=== PATIENT | female | born 1960 | race Caucasian/White ===

== ENCOUNTER 2018-05-12 08:59 | Day surgery (SDC) | payer BC ==
--- NOTE | 2018-04-26 09:14 | HP ---
AMENDED REPORT NOW INCLUDES COSIGNER DESIGNATION PREOPERATIVE HISTORY AND PHYSICAL: DATE OF SURGERY/ADMISSION: 05/12/18 DATE OF OFFICE VISIT/ENCOUNTER: 04/12/18 ATTENDING SURGEON: Jerrica Vásquez MD.* (DICTATED BY WALT NINO) PROCEDURE: Left wrist carpal tunnel release, ulnar nerve decompression at the elbow. CHIEF COMPLAINT: Numbness and tingling, left hand. HISTORY OF PRESENT ILLNESS: This is a 57-year-old female who complains of bilateral numbness and tingling in her hands, left is worse than the right. She has had this off and on for many years, but it has become worse in the past 3 to 4 months. She says her left thumb is numb all the time, and she also experiences some tingling in her pinky. Symptoms bother her at night and also during the day. 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 She denies any specific injury. She recently had a nerve conduction study with the results of moderate carpal tunnel syndrome and incipient ulnar nerve compression in the left elbow. She would like to proceed with surgical intervention for these problems. PAST MEDICAL HISTORY: 1. Mitral valve regurgitation. 2. Aortic valve regurgitation. 3. Asthma. 4. Hypertension. 5. Hypothyroidism. 6. Fibromyalgia. 7. Depression/anxiety. 8 Raynaud's disease. 9. Migraine headaches. PAST SURGICAL HISTORY: 1. Appendectomy. 2. x3. 3. Breast reduction x2. 4. Uterine ablation. 5. Open reduction and internal fixation, right ulna. CURRENT MEDICATIONS: 1. Albuterol sulfate 1 vial via nebulizer 4 times daily p.r.n. 2. Baclofen 10 mg 1/2 to 1 tab every 8 hours p.r.n. muscle spasms. 3. Calcium 600 mg daily. 4. Carbamazepine ER 200 mg twice a day. 5. Chlorthalidone 25 mg daily. 6. Combivent Respimat 200-100 mcg/ACT 1 puff 4 to 6 times daily p.r.n. 7. Coreg 25 mg twice daily. 8. Levothyroxine sodium 75 mcg daily. 9. Lyrica 100 mg 1 cap q.12 hours. 10. Manganese 15 mg daily. 11. Spironolactone 50 mg 1 tab twice a day. 12. Sumatriptan succinate 100 mg, use at onset of headache. 13. Symbicort 80-4.5 mcg/ACT 2 puffs twice a day. 14. Trazodone HCL 100 mg 1 tab daily. 15. Ventolin HFA inhaler 2 puffs 4 times a day p.r.n. 16. Vitamin D3 2000 units daily. 17. Zinc Chelated 50 mg 1 tab daily. ALLERGIES: MORPHINE causes hives. FAMILY MEDICAL HISTORY: Noncontributory. SOCIAL HISTORY: The patient is a nurse night supervisor at [employer]. She is a former smoker, she quit in 2002, but prior to that she report she smoked 4 cigarettes a day for 10 years. She denies recreational drug use. She drinks alcohol on occasion. REVIEW OF SYSTEMS: Negative for general, cephalic, cardiovascular, GI, , other musculoskeletal, integumentary, endocrine, neurologic and hematologic symptoms. Infectious Disease is negative for history of MRSA, hepatitis C and HIV. PHYSICAL EXAMINATION GENERAL: Well-developed, well-nourished 57-year-old female, in no acute distress. VITAL SIGNS: Height 5 feet 6 inches, weight 203 pounds. Blood pressure 118/82 , pulse rate 60. HEENT: Normocephalic, atraumatic. Pupils are equal, round and reactive to light and accommodation. Extraocular movements are intact. Throat is clear. NECK: Supple. No palpable lymph nodes. PULMONARY: Lungs are clear to auscultation bilaterally. No wheezes, rales or rhonchi. CARDIOVASCULAR: Regular rate and rhythm. S1, S2. No murmurs, rubs, or gallops. No edema. ABDOMEN: Positive bowel sounds. Soft, nontender. NEUROLOGICAL: Alert and oriented x3. Cranial nerves II through XII are intact. MUSCULOSKELETAL: On exam of her left upper extremity, no significant muscle wasting is noted in her left hand. There is some weakness with both finger adduction and thumb abduction. She has a positive Tinel sign at the median nerve as well as at the ulnar nerve at the elbow. Decreased sensation in her left thumb and fingers. IMPRESSION: Left carpal tunnel syndrome, and ulnar nerve compression at the elbow. PLAN: The patient is scheduled to undergo a left wrist carpal tunnel release, and a left ulnar nerve decompression at the elbow with Dr. Vásquez, on 05/12/18. She will return to the office 10 days postop for followup and suture removal. The patient has [place] at home from another prescriber and will plan on using Tylenol and ibuprofen [id number] for postoperative pain management. We will receive clearance prior to proceeding with surgical intervention from the patient's fence repairman, Dr. Zhang. WALT NINO [id number]/[facility] #: [id number] ALEX
[~2018-05-12 08:59] MED LIST: Buffered Lidocaine 0.9% SYRIN* 5 ML/SYR SYRINGE INTRADERM ONE; Famotidine IV* 10 MG/ML 2 ML (20 mg) IV ONE; ROPIVACAINE 5 MG/ML 30 ML BTL (0.5%) ONE
[2018-05-12] MEDS ORDERED: ceFAZolin 2 GM PREMIX in ORs 2 GM/50 ML BAG IVPB ONE (09:19)
[2018-05-12] MEDS ORDERED: Famotidine IV* 10 MG/ML 2 ML (20 mg) ONE (09:19)
[2018-05-12] MEDS ORDERED: fentaNYL* 50 MCG/ML 2 ML VIAL (100 MCG VIAL) ONE (10:15)
[2018-05-12] MEDS ORDERED: Midazolam* 1 MG/ML 5 ML VIAL (5 MG) ONE (10:15)
[2018-05-12] MEDS ORDERED: oxyCODONE/Acetamin 5/325 MG* TAB PO PRN (10:24)
[2018-05-12] MEDS ORDERED: Naloxone* 0.4 MG/ML 1 ML VIAL IV PRN (10:24)
[2018-05-12] MEDS ORDERED: DiMENhydriNATE IV* 50 MG/ML VIAL IV PUSH PRN (10:24)
[2018-05-12] MEDS ORDERED: Ondansetron INJ* 2 MG/ML VIAL ONE (10:26)
[2018-05-12] MEDS ORDERED: Propofol* 10 MG/ML 20 ML BTL IV PUSH ONE (10:26)
[2018-05-12] MEDS ORDERED: Dexamethasone IV* 4 MG/ML 1 ML (4 MG) ONE (10:26)
[2018-05-12] MEDS ORDERED: Ketorolac INJ* 30 MG/ML 1 ML VIAL ONE (10:26)
[2018-05-12] MEDS ORDERED: Lidocaine 2% PF * 5 ML VIAL ONE (10:26)
[2018-05-12] MEDS ORDERED: Lidocaine 1% INJ* 10 MG/ML 30 ML SDV ONE (10:29)
[2018-05-12] MEDS ORDERED: HYDROcodone/ACETAMIN 5-325 MG* 1 TAB ONE (12:12)
[2018-05-12 12:17] VITALS: BP 143/81
--- NOTE | 2018-05-13 03:03 | OP ---
DATE OF OPERATION: 05/12/18 - [facility] DATE OF : 62 SURGEON: Jerrica Vásquez MD ASSISTANT GM OF CONTENT & DELIVERY: WALT Andersen ANESTHESIA: General. PRE-OP DIAGNOSES: Carpal tunnel syndrome on the left and ulnar nerve compression at the left elbow. POST-OP DIAGNOSES: Carpal tunnel syndrome on the left and ulnar nerve compression at the left elbow. OPERATIVE PROCEDURE: Left carpal tunnel release and ulnar nerve decompression at the elbow, left. ESTIMATED BLOOD LOSS: Zero. TOURNIQUET TIME: About 30 minutes. INDICATIONS FOR PROCEDURE: La is a 57-year-old female with numbness and tingling in her left upper extremity. Nerve conduction study was consistent with ulnar nerve compression of the elbow and median nerve compression at the wrist. She presents for decompression of the ulnar nerve at the elbow and left carpal tunnel release. DESCRIPTION OF PROCEDURE: The patient was brought to the operating room, was given a general anesthetic and placed in the supine position on the operating table with the tourniquet around her left upper arm. The skin of her left upper extremity was prepped and draped in the usual sterile fashion. The upper extremity was exsanguinated and the tourniquet elevated to 250 mmHg. A longitudinal incision was made in the palm in line with the ring finger. We dissected sharply through the subcutaneous tissue down to the transverse carpal ligament. The ligament was divided sharply with a knife and then more proximally with the scissors. The nerve was dissected free from the surrounding tissues and there was an area of moderate compression at the mid portion of the ligament. The wound was irrigated and the skin edges were reapproximated with a 4-0 nylon suture. Next, a curvilinear incision was made, centered between the medial epicondyle and the tip of the olecranon process. We dissected through the subcutaneous tissue bluntly down to the ulnar nerve proximal to the cubital tunnel. The nerve was dissected out carefully proximally for several centimeters and then through the cubital tunnel and through the FCU fascia, both superficial and deep. The medial and brachial cutaneous nerve was preserved. The nerve was completely released and did not sublux with range of motion. The wound was irrigated and the subcutaneous tissue was closed with 3-0 Polysorb and the skin with skin gualberto. The wounds were dressed with Xeroform, 4x4, Webril, and an Sukumar wrap. The patient tolerated the procedure well, was brought to the recovery room in good condition. [id number]/[facility] #: [id number] MTDD
== END 2018-05-12 12:45 | disposition home or self-care (01) ==
LOC: OREAST 08:59
PROVIDERS: ATTEND Orthopaedic Surgery
DX: G56.02 Carpal tunnel syndrome, left upper limb (principal); G56.22 Lesion of ulnar nerve, left upper limb; I73.00 Raynaud's syndrome without gangrene; I34.0 Nonrheumatic mitral (valve) insufficiency; I35.1 Nonrheumatic aortic (valve) insufficiency; I10 Essential (primary) hypertension; E03.9 Hypothyroidism, unspecified; Z87.891 Personal history of nicotine dependence
CPT/HCPCS: J0690; J1100; J1885; J2250; J2405; J2704; J2795; J3010